=== PATIENT | female | born 1985 | race Caucasian/White ===

== ENCOUNTER 2020-02-01 02:32 | Emergency (ER) | payer MEDICARE, MEDICAID, SELFPAY ==
[2020-02-01 02:34] VITALS: BP 127/69; BP 150/78; PULSE 79; PULSE 81; RESP 18; TEMP 36.7; O2SAT 100; O2SAT 98; BMI 30.9
--- NOTE | 2020-02-01 02:58 | ED.NAVMDI ---
HPI - Nausea/Vomiting/Diarrhea General Chief complaint: Nausea/Vomiting/Diarrhea Stated complaint: dizzy/nausea Time Seen by Provider: 02/01/20 02:58 History of Present Illness HPI Narrative: Patient is a 35-year-old female took some Mucinex prior to sleeping because of congestion. Subsequently feel nauseous dizzy lightheaded. Patient's symptom resolved on the way coming to the emergency department. No chest pain or diaphoresis. Positive generalized malaise. No coughing or congestion or upper respiratory symptoms no fever no chills. Patient is from home. Related Data Home Medications Medication Instructions Recorded Confirmed albuterol sulfate [Ventolin HFA] 2 puff PO Q4H PRN 02/01/20 02/01/20 bupropion HCl 1 tab PO DAILY 02/01/20 02/01/20 buspirone 1 tab PO BID 02/01/20 02/01/20 fluticasone propionate 2 spray INTRANASAL DAILY 02/01/20 02/01/20 glycopyrrolate 1 tab PO TID 02/01/20 02/01/20 hyoscyamine sulfate [Levsin] 1 tab PO BID 02/01/20 02/01/20 lithium carbonate 300 mg 02/01/20 lithium carbonate mg PO 02/01/20 loperamide 2 cap PO BID PRN 02/01/20 02/01/20 montelukast 1 tab PO DAILY 02/01/20 02/01/20 naratriptan 1 tab PO Q2H PRN 02/01/20 02/01/20 norethindrone ac-eth estradiol 1 tab PO DAILY 02/01/20 02/01/20 [Microgestin 1.5/30 (21)] omeprazole 2 cap PO DAILY 02/01/20 02/01/20 propranolol 1 cap PO DAILY 02/01/20 02/01/20 Allergies Allergy/AdvReac Type Severity Reaction Status Date / Time gabapentin [GABAPENTIN] Allergy Mild RASH Unverified 11/29/19 19:37 oxcarbazepine [OXCARBAZEPINE] Allergy Mild DIZZINESS Unverified 11/29/19 19:37 Sulfa (Sulfonamide Allergy Mild RASH Unverified 11/29/19 19:37 Antibiotics) [SULFA (SULFONAMIDE ANTIBIOTICS)] Review of Systems Review of Systems: Constitutional: No Weight loss, No Fever, No Chills, No Night Sweats, No Fatigue, No Malaise ENT/Mouth: No Hearing loss, No Ear Pain, No Nasal Congestion, No Sinus Pain, No Hoarseness, No sore throat, No Rhinorrhea, No Swallowing Difficulty Eyes: No Eye Pain, No Swelling, No Redness, No Foreign Body, No Discharge, No Vision Changes Cardiovascular: No Chest Pain, No SOB, No Dyspnea on Exertion, No Orthopnea, No Edema, No Palpitations Respiratory: No Cough, No Sputum, No Wheezing, No Smoke Exposure, No Dyspnea Gastrointestinal: No Nausea, No Vomiting, No Diarrhea, No Constipation, No abdominal Pain, No Hematochezia, No Melena Genitourinary: no irregular bleeding, No Dysuria, No Urinary Frequency, No Hematuria, No Urinary Incontinence, No Urgency, No Flank Pain, No Urinary Flow Changes, No Hesitancy Musculoskeletal: No joint pain, No Myalgias, No Joint Swelling Skin: No Skin Lesions, No rash Neuro: No Weakness, No Numbness, No Paresthesias, No Loss of Consciousness, No Dizziness, No Headache Psych: No Anxiety/Panic, No Depression, No SI/HI/AH/VH, No Social Issues, Heme/Lymph: No Bruising, No Bleeding,No Lymphadenopathy Endocrine: No Polyuria, No Polydipsia, No Temperature Intolerance [facility] Past Medical History Medical History (Updated 02/01/20 @ 03:02 by Rupa Keenan MD) Asthma Bipolar disorder GERD (gastroesophageal reflux disease) Irritable bowel Kidney stones Surgical History (Updated 02/01/20 @ 02:41 by Luz Handy) Hx of tonsillectomy Physical Exam Vital Signs: Vital Signs: Last Vital Signs Temp 98.1 F 02/01/20 02:34 Pulse 81 02/01/20 02:34 Resp 18 02/01/20 02:34 BP 127/69 02/01/20 02:34 Pulse Ox 100 02/01/20 02:34 Body Mass Index 30.9 Appearance: Alert. Oriented X3. No acute distress. Eyes: Pupils equal, round and reactive to light. ENT: Pharynx normal. Neck: Normal inspection. Neck supple. No lymph nodes noted. No crepitus CVS: Normal heart rate and rhythm. Pulses normal. Normal S1 and S2 Respiratory: No respiratory distress. Breath sounds normal. No Wheezing. No rales Abdomen: Soft and nontender. No rigidity. No distention. good BS x4 Skin: Skin warm and dry. Normal skin color. Normal skin turgor. Extremities: No lower extremity edema. Neurovascular intact to all extremities. No Lacerations. No Rash Neuro: Oriented X 3. No motor deficit. No sensory deficit. Moving all extermities. No slurred speech MDM - Nausea/Vomiting/Diarrhea MDM Narrative Medical decision making narrative: Well-appearing symptoms completely resolved patient in no distress. Will discharge patient. Currently in stable condition. Discharge Plan Discharge Clinical Impression: Drug-induced nausea and vomiting Patient Disposition: Home, Self-Care Instructions: Acute Nausea and Vomiting (ED) Additional Instructions: Please follow-up with your doctor on an outpatient basis Prescriptions: No Action glycopyrrolate 1 mg tablet 1 tab PO TID RF: 0 loperamide 2 mg capsule 2 cap PO BID PRN (Reason: Migraine Headache) RF: 0 propranolol 60 mg capsule,extended release 24 hr 1 cap PO DAILY RF: 0 norethindrone ac-eth estradiol [Microgestin 1.5/30 (21)] 1.5-30 mg-mcg tablet 1 tab PO DAILY RF: 0 lithium carbonate 150 mg capsule PO RF: 0 lithium carbonate 300 mg Capsule 300 mg RF: 0 hyoscyamine sulfate [Levsin] 0.125 mg tablet 1 tab PO BID RF: 0 omeprazole 20 mg capsule,delayed release(DR/EC) 2 cap PO DAILY RF: 0 montelukast 10 mg tablet 1 tab PO DAILY RF: 0 albuterol sulfate [Ventolin HFA] 90 mcg/actuation HFA aerosol inhaler 2 puff PO Q4H PRN (Reason: Shortness Of Breath) RF: 0 fluticasone propionate 50 mcg/actuation spray,suspension 2 spray intranasal DAILY RF: 0 naratriptan 2.5 mg tablet 1 tab PO Q2H PRN (Reason: Pain) RF: 0 buspirone 15 mg tablet 1 tab PO BID RF: 0 bupropion HCl 300 mg tablet extended release 24 hr 1 tab PO DAILY RF: 0
== END 2020-02-01 03:15 | disposition home or self-care (01) ==
PROVIDERS: Emergency Provider Emergency Medicine Emergency Medical Services; PCP Internal Medicine
DX: R11.2 Nausea with vomiting, unspecified (principal); R42 Dizziness and giddiness; Z79.899 Other long term (current) drug therapy
CPT/HCPCS: 99282; 99283

== ENCOUNTER 2023-03-04 19:16 | Emergency (ER) | payer OTHER, SELFPAY ==
--- NOTE | ~2023-03-04 | CT_ITS ---
CT HEAD WITHOUT IV CONTRAST INDICATION: New onset seizures/fall. COMPARISON: Head CT 04/15/2018. TECHNIQUE: Multidetector CT acquisitions of the head was obtained without IV contrast. This CT examination was performed using dose optimization techniques as appropriate, variously including the following: *Automated exposure control *Adjustment of mA and/or kV according to patient size (this includes techniques or standardized protocols for targeted exams where dose is matched to indication/reason for exam; i.e. extremities or head) *Use of iterative reconstruction technique FINDINGS: There is no intracranial hemorrhage, hydrocephalus, extra-axial surface collection, midline shift, or other herniation pattern. Bautista to white matter differentiation is diffusely maintained without evidence of an evolved acute territorial infarct. The basilar cisterns are preserved. No significant soft tissue abnormality. No acute osseous abnormality. The paranasal sinuses and the mastoid air cells are well aerated. CT/CT head/brain wo IV con IMPRESSION: No acute intracranial abnormality.
--- NOTE | 2023-03-04 19:25 | ED.SEIZURE ---
HPI - Seizure General Chief Complaint: Seizure Stated Complaint: seizure lasting 2 mins, no hx of sz Time Seen by Provider: 03/04/23 19:22 Source: patient and family Mode of arrival: EMS Limitations: no limitations History of Present Illness HPI Narrative: Patient with History of bipolar disorder depression anxiety on Wellbutrin 450 mg daily history of seizures remotely in the past not on medication no workup done today while at home standing next to her bed started having generalized tonic clonic seizure witnessed by her boyfriend patient fell down to bed and then to the ground hitting her head to the ground, had foaming from his her mouth and eyes up rolled whole episode lasted for 2 minutes postictal patient was snoring and confused bit her tongue no headache, no other injury no alcohol use no sleep deprivation Related Data Home Medications Medication Instructions Recorded Confirmed albuterol sulfate 90 mcg/actuation 2 puff PO Q4H PRN Shortness Of 02/01/20 02/01/20 aerosol inhaler (Ventolin HFA) Breath bupropion HCl 300 mg 24 hr tablet, 1 tab PO DAILY 02/01/20 02/01/20 extended release buspirone 15 mg tablet 1 tab PO BID 02/01/20 02/01/20 fluticasone propionate 50 2 spray intranasal DAILY 02/01/20 02/01/20 mcg/actuation nasal spray,suspension glycopyrrolate 1 mg tablet 1 tab PO TID 02/01/20 02/01/20 hyoscyamine sulfate 0.125 mg 1 tab PO BID 02/01/20 02/01/20 tablet (Levsin) lithium carbonate 150 mg capsule mg PO 02/01/20 lithium carbonate 300 mg capsule 300 mg 02/01/20 loperamide 2 mg capsule 2 cap PO BID PRN Migraine Headache 02/01/20 02/01/20 montelukast 10 mg tablet 1 tab PO DAILY 02/01/20 02/01/20 naratriptan 2.5 mg tablet 1 tab PO Q2H PRN Pain 02/01/20 02/01/20 norethindrone acetate 1.5 1 tab PO DAILY 02/01/20 02/01/20 mg-ethinyl estradiol 30 mcg tablet (Microgestin) omeprazole 20 mg capsule,delayed 2 cap PO DAILY 02/01/20 02/01/20 release propranolol 60 mg capsule,24 1 cap PO DAILY 02/01/20 02/01/20 hr,extended release Allergies Allergy/AdvReac Type Severity Reaction Status Date / Time gabapentin [GABAPENTIN] Allergy Mild RASH Verified 03/04/23 20:06 oxcarbazepine [OXCARBAZEPINE] Allergy Mild DIZZINESS Unverified 03/04/23 19:30 Sulfa (Sulfonamide Allergy Mild RASH Unverified 03/04/23 19:30 Antibiotics) [SULFA (SULFONAMIDE ANTIBIOTICS)] Review of Systems Review of Systems: Yes all other systems are reviewed and are negative [facility] Past Medical History Medical History Kidney stones Irritable bowel GERD (gastroesophageal reflux disease) Asthma Bipolar disorder Surgical History Hx of tonsillectomy Social History Social History Alcohol intake: current Alcohol type: beer and wine Smoked in Last 30 Days: Yes Use of substances other than those prescribed or required for medical reasons: No Advance Directives: No Advance Directives Information Provided: No Patient : No Physical Exam Vital Signs: Vital Signs: Last Vital Signs Temp 98.6 F 03/04/23 22:12 Pulse 113 H 03/04/23 22:12 Resp 16 03/04/23 22:12 BP 112/67 03/04/23 22:12 Pulse Ox 97 03/04/23 22:12 O2 Del Method Room Air 03/04/23 22:12 BMI result Body Mass Index 28.2 Appearance: Alert. Oriented X3. No acute distress. Eyes: PERRLA, No Nystagmus ENT: Pharynx normal. Oral Mucosa moist superficial tongue bite no active bleed atraumatic normocephalic Neck: Normal inspection. Neck supple. CVS: Normal heart rate and rhythm. Pulses normal. Respiratory: No respiratory distress. Equal air entry bilateral, no wheezing/rales/rhonchi Abdomen: Soft and nontender. Bowel sounds are present, no mass palpable, no CVA tenderness Skin: Skin warm and dry. Normal skin color. Normal skin turgor. Extremities: No lower extremity edema. No calf tenderness Neuro: Oriented X 3. No motor deficit. No sensory deficit.No cerebellar signs , cranial nerves II-XII intact Medications Administered Discontinued Medications Generic Name Dose Route Start Last Admin Trade Name Kareem PRN Reason Stop Dose Admin Lorazepam 2 mg 03/04/23 19:40 03/04/23 20:07 Lorazepam 1 Mg Tablet PO 03/04/23 19:41 2 mg ONCE ONE Administration Medical Decision Making Medical Decision Making [facility] Narrative: Patient with and a tonic-clonic seizure 2nd episode 1st episode was several years ago. Patient on Wellbutrin likely the cause for some of the seizure advised to decrease the dose of Wellbutrin and slowly stop it after discussing with psychiatrist. CT scan negative for DARA/SDH Differential Diagnosis Differential Diagnoses: The differential diagnosis associated with the presentation includes Epilepsy/pseudo-seizure/sdh/skull fx/ICH/intracranial mass Admission/Observation Consideration of admission/observation: Escalation of care including admission/observation considered Lab Data [facility] Lab Attestation statement: I reviewed the patient's lab results. 03/04/23 20:11 03/04/23 20:11 Labs: Lab Results 03/04/23 03/04/23 Range/Units 20:11 20:18 WBC 15.1 H (4.8-10.8) X10*3/uL RBC 4.75 (4.20-5.50) X10*6/uL Hgb 13.2 (12.0-16.0) g/dl Hct 39.6 (37.0-47.0) % MCV 83.4 (80.0-98.0) fL MCH 27.8 (27.0-33.0) pg MCHC 33.3 (31.0-35.0) g/dl RDW 13.5 (11.0-16.0) % Plt Count 322 (160-400) X10*3/uL MPV 10.0 (9.4-12.3) fL Immature Gran % (Auto) 0.3 (0.0-0.4) % Neut % (Auto) 79.2 H (45-73) % Lymph % (Auto) 14.7 L (20-40) % [place] % (Auto) 4.3 (2-11) % Eos % (Auto) 1.2 (0-4) % Baso % (Auto) 0.3 (0-2) % Lymph # (Auto) 2.2 (1.2-4.9) X10*3/uL [place] # (Auto) 0.7 (0.1-1.2) X10*3/uL Eos # (Auto) 0.2 (0.0-0.4) X10*3/uL Baso # (Auto) 0.0 (0.0-0.2) X10*3/uL Abs Immat Gran (auto) 0.05 H (0.00-0.03) X10*3/uL Absolute Neuts (auto) 12.0 H (2.0-8.3) x10*3/uL Absolute Nucleated RBC 0.000 (0.0-0.012) X10*3/uL Nucleated RBC % (auto) 0.0 (0.0-0.2) /100WBC Sodium 139 (135-145) mmol/L Potassium 4.2 (3.3-5.1) mmol/L Chloride 110 H (96-108) mmol/L Carbon Dioxide 21 L (22-29) mmol/L Anion Gap 12 (12-20) BUN 10 (9-16) mg/dL Creatinine 0.84 (0.5-1.4) mg/dL Estim Creat Clear Calc 97.8 Estimated GFR > 60 Random Glucose 109 (60-115) mg/dL Calcium 9.7 (8.4-10.2) mg/dL Magnesium 1.9 (1.6-2.6) mg/dL Total Bilirubin 0.5 (0.0-1.0) mg/dL AST 17 (5-31) U/L ALT 17 (0-31) U/L Alkaline Phosphatase 66 (39-117) U/L Total Protein 6.4 L (6.5-8.0) g/dL Albumin 3.9 (3.5-5.0) g/dL [place] 0.34 L (0.60-1.20) mmol/L Discharge Plan Discharge Clinical Impression: Epileptic seizure Patient Disposition: Home, Self-Care Instructions: Epilepsy (ED) Additional Instructions: Likely have seizure disorder which got worse while taking bupropion Decrease the dose of bupropion to 300 mg daily only. Do not take 150 mg. dose speak to Psychiatrist about completely stopping Wellbutrin Continue other medication follow with psychiatrist and neurologist Prescriptions: No Action glycopyrrolate 1 mg tablet 1 tab PO TID loperamide 2 mg capsule 2 cap PO BID PRN (Reason: Migraine Headache) propranolol 60 mg capsule,extended release 24 hr 1 cap PO DAILY norethindrone ac-eth estradiol [Microgestin .5 (21)] 1.5-30 mg-mcg tablet 1 tab PO DAILY lithium carbonate 150 mg capsule PO lithium carbonate 300 mg Capsule 300 mg Rx Instructions: 1 capsule am and 2 capsules at bedtime. hyoscyamine sulfate [Levsin] 0.125 mg tablet 1 tab PO BID omeprazole 20 mg capsule,delayed release(DR/EC) 2 cap PO DAILY montelukast 10 mg tablet 1 tab PO DAILY albuterol sulfate [Ventolin HFA] 90 mcg/actuation HFA aerosol inhaler 2 puff PO Q4H PRN (Reason: Shortness Of Breath) fluticasone propionate 50 mcg/actuation spray,suspension 2 spray intranasal DAILY naratriptan 2.5 mg tablet 1 tab PO Q2H PRN (Reason: Pain) buspirone 15 mg tablet 1 tab PO BID bupropion HCl 300 mg tablet extended release 24 hr 1 tab PO DAILY Referrals: Awilda Schmitt MD [Physician] - 2 weeks Interventions: ED Discharge Assessment Last Done: 03/04/23 22:33 Discharge Date/Time: 03/04/23 22:34
[2023-03-04 19:31] VITALS: BP 119/72; BP 121/70; PULSE 125; PULSE 133; RESP 29; TEMP 37; O2SAT 96; O2SAT 97; BMI 28.2
[2023-03-04 20:03] VITALS: BP 123/67; PULSE 118; RESP 19; O2SAT 96
[2023-03-04] MEDS: LORazepam 1 MG TABLET 2 MG PO (20:07)
[2023-03-04 20:22] LABS: MANUAL DIFF FLAG NO
[2023-03-04 20:26] LABS: Basophils Percent Auto 0.3 % (0-2); Eosinophils Absolute Auto 0.2 X10*3/uL (0.0-0.4); Eosinophils Percent Auto 1.2 % (0-4); Hematocrit 39.6 % (37.0-47.0); Hemoglobin 13.2 g/dl (12.0-16.0); Imm Gran Abs Auto 0.05 X10*3/uL (0.00-0.03); Imm Gran Pct Auto 0.3 % (0.0-0.4); Lymphocytes Absolute Auto 2.2 X10*3/uL (1.2-4.9); Lymphocytes Percent Auto 14.7 % (20-40); Mean Corpuscular HGB Conc 33.3 g/dl (31.0-35.0); Mean Corpuscular Hemoglobin 27.8 pg (27.0-33.0); Mean Corpuscular Volume 83.4 fL (80.0-98.0); Monocytes Absolute Auto 0.7 X10*3/uL (0.1-1.2); Monocytes Percent Auto 4.3 % (2-11); Neutrophils Percent Auto 79.2 % (45-73); Platelet Count 322 X10*3/uL (160-400); Red Blood Count 4.75 X10*6/uL (4.20-5.50); Red Cell Distribution Width 13.5 % (11.0-16.0); White Blood Count 15.1 X10*3/uL (4.8-10.8)
[2023-03-04 20:43] LABS: Alanine Aminotransferase 17 U/L (0-31); Albumin Level 3.9 g/dL (3.5-5.0); Alkaline Phosphatase 66 U/L (39-117); Anion Gap 12 (12-20); Aspartate Amino Transferase 17 U/L (5-31); Bilirubin Total 0.5 mg/dL (0.0-1.0); Blood Urea Nitrogen 10 mg/dL (9-16); Calcium 9.7 mg/dL (8.4-10.2); Carbon Dioxide 21 mmol/L (22-29); Chloride 110 mmol/L (96-108); Creatinine Clr Calc Pharmacy 97.8; Estimated Glomerular Filt Rate > 60; Glucose Random 109 mg/dL (60-115); Magnesium 1.9 mg/dL (1.6-2.6); Potassium 4.2 mmol/L (3.3-5.1); Sodium 139 mmol/L (135-145); Total Protein 6.4 g/dL (6.5-8.0)
[2023-03-04 20:53] LABS: Lithium 0.34 mmol/L (0.60-1.20)
[2023-03-04 22:12] VITALS: BP 112/67; PULSE 113; RESP 16; TEMP 37; O2SAT 97
== END 2023-03-04 22:34 | disposition home or self-care (01) ==
PROVIDERS: Emergency Provider Internal Medicine
DX: G40.909 Epilepsy, unspecified, not intractable, without status epilepticus (principal); Z79.899 Other long term (current) drug therapy
CPT/HCPCS: 36415; 70450; 80053; 80178; 83735; 85025; 99284